=== PATIENT | female | born 1955 | race Hispanic/Latino ===

== ENCOUNTER 2017-12-20 11:58 | Emergency (ER) | payer MEDICAID ==
[2017-12-20 12:16] VITALS: TEMP 97.7; O2SAT 97
--- NOTE | 2017-12-20 12:31 | ED PDOC ---
HPI: CCC, URI, Sore Throat Time Seen by Provider: 12/20/17 12:19 Chief Complaint (Nursing): Fever Chief Complaint (Provider): Cough History Per: Patient History/Exam Limitations: no limitations Onset/Duration Of Symptoms: Days (3 weeks) Additional Complaint(s): Pt. with cough, nasal congestion, runny nose for 3 weeks. No chest pain, abd pain, nasuea, vomit, diarrhea. No back pain. No headaches. No leg pain. States fever at home at 97. Past Medical History Reviewed: Nursing Documentation, Vital Signs Vital Signs: Last Vital Signs Temp 97.7 F 12/20/17 12:14 Pulse 88 12/20/17 12:14 Resp 16 12/20/17 12:14 BP 147/87 12/20/17 12:14 Pulse Ox 97 12/20/17 12:14 - Medical History PMH: Anxiety, Asthma, COPD, Diabetes, Diverticulitis, HTN, Hypercholesterolemia, Pneumonia - Family History Family History: States: Unknown Family Hx - Home Medications Home Medications: Ambulatory Orders Medication Instructions Recorded Albuterol 0.083% [Albuterol 0.083% 1 puff INH PRN PRN 11/13/14 Inhal Tameka (2.5 mg/3 ml) UD] Albuterol Sulfate [Proair Hfa] 1 puff INH PRN PRN 11/13/14 Alprazolam 0.5 mg PO HS 11/13/14 Hydrochlorothiazide 25 mg PO DAILY 11/13/14 Lorazepam [Ativan] 2 mg PO HS 11/13/14 amLODIPine [Norvasc] 10 mg PO DAILY 11/13/14 Ciprofloxacin [Cipro] 500 mg PO Q12 #0 tab 11/18/14 Cyclobenzaprine [Flexeril] 10 mg PO DAILY #0 11/18/14 metroNIDAZOLE [Flagyl] 500 mg PO Q8 #0 tab 11/18/14 Albuterol Sulfate [Proair Hfa] 0.09 mg IH Q6H PRN #2 inh 12/20/17 Azithromycin [Zithromax] 250 mg PO DAILY 5 Days tab 12/20/17 Benzonatate [Tessalon Perles] 100 mg PO BID PRN 5 Days sgl 12/20/17 Ibuprofen [Motrin] 600 mg PO TID 7 Days tab 12/20/17 predniSONE [predniSONE Tab] 20 mg PO BID 5 Days tab 12/20/17 - Allergies Allergies/Adverse Reactions: Allergies Allergy/AdvReac Type Severity Reaction Status Date / Time No Known Allergies Allergy Verified 12/20/17 12:14 Review of Systems ROS Statement: Except As Marked, All Systems Reviewed And Found Negative ENT: Positive for: Nose Pain, Nose Discharge, Nose Congestion Respiratory: Positive for: Cough, Sputum Physical Exam - Reviewed Nursing Documentation Reviewed: Yes Vital Signs Reviewed: Yes - Physical Exam Appears: Positive for: Non-toxic, No Acute Distress Head Exam: Positive for: ATRAUMATIC, NORMAL INSPECTION, NORMOCEPHALIC Skin: Positive for: Normal Color, Warm, DRY Eye Exam: Positive for: EOMI, Normal appearance, PERRL ENT: Positive for: Nasal Congestion. Negative for: Tonsillar Exudate Neck: Positive for: Normal, Painless ROM Cardiovascular/Chest: Positive for: Regular Rate, Rhythm Respiratory: Positive for: Decreased Breath Sounds, Wheezing. Negative for: Accessory Muscle Use, Respiratory Distress Gastrointestinal/Abdominal: Positive for: Normal Exam, Soft. Negative for: Tenderness Back: Positive for: Normal Inspection. Negative for: L CVA Tenderness, R CVA Tenderness Extremity: Positive for: Normal ROM. Negative for: Tenderness, Pedal Edema Neurologic/Psych: Positive for: Alert, Oriented - ECG O2 Sat by Pulse Oximetry: 97 Pulse Ox Interpretation: Normal - Radiology X-Ray: Read By Radiologist X-Ray Interpretation: No Acute Disease - Progress ED Course And Treament: 1345: Stable. AAOx3. Pain free. Tolerated PO. Ambulated with no issues. Disposition - Clinical Impression Clinical Impression: Asthma attack, Cough - Patient ED Disposition Is Patient to be Admitted: No Counseled Patient/Family Regarding: Studies Performed, Diagnosis, Need For Followup, Rx Given - Disposition Referrals: [facility] [Outside] - 12/21/17 Disposition: Routine/Home Disposition Time: 13:47 Condition: STABLE Additional Instructions: Return if not better in 3 days. Prescriptions: Albuterol Sulfate [Proair Hfa] 0.09 mg IH Q6H PRN #2 inh PRN Reason: Wheezing Azithromycin [Zithromax] 250 mg PO DAILY 5 Days tab Benzonatate [Tessalon Perles] 100 mg PO BID PRN 5 Days sgl PRN Reason: Cough Ibuprofen [Motrin] 600 mg PO TID 7 Days tab predniSONE [predniSONE Tab] 20 mg PO BID 5 Days tab Instructions: Asthma in Adults, Cough, Adult (DC)
[2017-12-20] MEDS ORDERED: Albuterol-Ipratrop 3 mg / 0.5 (3 ml) UD ONE (12:36)
[2017-12-20] MEDS: Albuterol-Ipratrop 3 mg / 0.5 (3 ml) UD INH STA (12:38)
[2017-12-20] MEDS: Albuterol-Ipratrop 3 mg / 0.5 (3 ml) UD IH STA (12:38)
--- NOTE | 2017-12-20 13:31 | RAD ---
Date of service: 12/20/2017 HISTORY: dyspnea COMPARISON: 10/10/2015 TECHNIQUE: Chest PA and lateral FINDINGS: LUNGS: No active pulmonary disease. PLEURA: No significant pleural effusion identified. No pneumothorax apparent. CARDIOVASCULAR: No aortic atherosclerotic calcification present OSSEOUS STRUCTURES: No significant abnormalities. VISUALIZED UPPER ABDOMEN: Normal. OTHER FINDINGS: None. IMPRESSION: No active disease.
[2017-12-20 14:11] VITALS: BP 136/73; PULSE 83; RESP 18
== END 2017-12-20 14:11 | disposition home or self-care (01) ==
LOC: H.ER 11:58
DX: J45.909 Unspecified asthma, uncomplicated (principal); R05 Cough; E11.9 Type 2 diabetes mellitus without complications; E78.00 Pure hypercholesterolemia, unspecified; I10 Essential (primary) hypertension